=== PATIENT | male | born 1980 | race Two or more races ===

== ENCOUNTER 2022-06-23 10:24 | Day surgery (SDC) | payer OTHER ==
[~2022-06-23] VITALS: Ht 172.7 cm; Wt 141.5 kg
[~2022-06-23 10:24] MED LIST: COZAAR50 MG PO; OZEMPIC1 MG/0.71; XIGDUO XR 5 MG1 EAC1 PO; ZYRTEC10 M3 PO
[2022-06-23] MEDS ORDERED: NASAL MIST126 ML NASAL (14:27)
[2022-06-23] MEDS ORDERED: BACTRIM DS TAB1 EACH PO (14:27)
== END 2022-06-23 18:40 | disposition home or self-care (01) ==
LOC: CIR.AMB 10:24
PROVIDERS: ATTEND Orthopaedic Surgery
DX: S86.012A Strain of left Achilles tendon, initial encounter (principal); Z03.818 Encounter for observation for suspected exposure to other biological agents ruled out; Z20.822 Contact with and (suspected) exposure to COVID-19; E11.9 Type 2 diabetes mellitus without complications; Z76.89 Persons encountering health services in other specified circumstances; I10 Essential (primary) hypertension; Z91.011 Allergy to milk products; Z88.1 Allergy status to other antibiotic agents